=== PATIENT | male | born 1950 | race Caucasian/White ===

== ENCOUNTER → 2018-12-10 | Outpatient (CLI) | payer BC ==
--- NOTE | 2018-12-10 16:36 | RADRPT ---
PROCEDURE: XR Knees. CLINICAL INDICATION: Bilateral knee pain. TECHNIQUE: Total of eight views. Weightbearing frontal, oblique, and lateral views of the both kne es. Patellar views of both knees. COMPARISON: No prior study is available for comparison. FINDINGS: There is no fracture or dislocation. Vascular calcifications are present consistent with atherosclerosis. Articular surfaces are intact. There is no lytic or blastic lesion. There is no radiopaque foreign body. IMPRESSION: 1. Atherosclerosis. 2. Otherwise unremarkable images of both knees. RPTAT: QQ .Kerwin Biswas MD, MD Date Time Electronically viewed and signed by .Kerwin Biswas MD, MD on 12/10/2018 16:36 .R/
--- NOTE | 2018-12-10 21:11 | CONS ---
Assessment/Plan Assessment/Plan Hospital Course (Demo Recall) 68-year-old male presents with 3 days right knee pain to clinic. The patient denies any pain. 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 Without reviewing the imaging myself its difficult to determine the extent and size of the lesion. The lateral meniscus tear is chronic. At this time I like to make the patient nonweightbearing with crutches to protect his lateral femoral condyle. Like him to bring in the CD with imaging. I will review the images and call him with an updated plan. If the lesion is relatively small and low-grade likely will allow him to weight-bear. Versus even offering him steroid injection. Will call patient once MRI imaging is reviewed. Consultation Date/Type/Reason Admit Date/Time Date of Consultation: Dec 10, 2018 Reason for Consultation right knee pain Date/Time of Note DATE: 12/10/18 TIME: 20:55 Hx of Present Illness Is a 68-year-old male with a chief complaint of right knee pain. The pain began approximately 30 days ago. The patients pain is in the lateral aspect of the right knee. Pain is not radiating to the lower leg. The pain is rated as a 7/10. Patient denies complaints of numbness or tingling. The pain is exacerbated by weightbearing, climbing stairs and ambulation. When sitting he has minimal to no pain. He did have a right knee steroid injection 2 weeks ago by his PCP with no relief. Duration: 30 days Injury: No Walking tolerance: Severely limited Limp: yes Support: no Swelling: Yes Crepitation: No Instability: No Stairs: Painful Physical Therapy: No Injections: Yes NSAIDs: No Prior surgery: No Back pain: Yes Hip pain: No Risk of AVN : Yes Patient denies fever, chills, shortness of breath, chest pain, nausea/vomiting, constipation, diarrhea, numbness, and tingling. Past Medical History Hypertension Past Surgical History Past Surgical Hx: noncontributory Family History Significant Family History: no pertinent family hx Social History Alcohol Use: heavy (Daily) Smoking Status: Former smoker Drug Use: none Exam/Review of Systems Exam Exam General: Alert, oriented x3. No Acute Distress. Heart: Regular rate and rhythm. Lungs: No respiratory distress. No accessory muscle use. Musculoskeletal: Right Knee This is a well developed male who is alert, oriented times three and in no apparent distress. Skin is intact over the right knee as well as the lower extremity with no abrasions, lacerations, or ulcerations. Observation of the patient's gait reveals an antalgic gait with No thrust. Frontal plane alignment is slight valgus. There is pain on palpation of lateral joint line and lateral femoral condyle. The patient demonstrates grinding anteriorly with ROM. Range of motion: 0 extension to approximately 130 degrees of flexion. Negative Gerson's. Collateral ligament testing reveals no instability with varus or valgus stress at 0 and 30 degrees of flexion. Negative Dalila's and negative posterior drawer. Neurovascularly intact with 5/5 EHL/tibialis anterior/gastroc. Sensation intact to light touch in a sural, saphenous, deep peroneal, superficial peroneal, medial and lateral plantar nerve distribution. Palpable, symmetric dorsalis pedis and posterior tibial pulses in both lower extremities. Hip examination normal. Imaging Imaging MRI from outside facility report was reviewed: Demonstrates complete detachment of the anterior horn and posterior horn root of the lateral meniscus. There is multidirectional tears. There is full-thickness cartilage loss in the lateral and femoral condyle and lateral tibial plateau. There is edema in the lateral femoral condyle with subchondral microfractures or spontaneous osteonecrosis of the knee. Mucoid degeneration of the ACL. Chronic sprain of the MCL and low- grade sprain of the LCL. The patient received a standard set of films today that were personally reviewed. Imaging included a standing bilateral knee AP, PA flexion, merchant views and a dedicated lateral of the affected knee: There is slight valgus alignment of the knee. There is moderate loss of joint space lateral compartment(s). There is no osteophyte formation. There is no subchondral sclerosis. There are no subchondral cysts. There are changes in the lateral femoral condyle which may be early AVN vs collapse. Significant number of calcifications in the popliteal artery and bilateral knees. BRAIN CANO MD Dec 10, 2018 21:08
== END | disposition home or self-care (01) ==
LOC: HKI 12:58
PROVIDERS: ATTEND Orthopaedic Surgery Adult Reconstructive Orthopaedic Surgery
DX: M25.561 Pain in right knee (principal); S83.281A Other tear of lateral meniscus, current injury, right knee, initial encounter; X58.XXXA Exposure to other specified factors, initial encounter
CPT/HCPCS: 73564; G0463

== ENCOUNTER → 2019-02-25 | Outpatient (CLI) | payer BC ==
--- NOTE | 2019-02-25 19:34 | CONS ---
Consult Date/Type/Reason Admit Date/Time Initial Consult Date Date/Time of Note DATE: 02/25/19 TIME: 19:21 Subjective This is a 68-year-old male following up today for right knee pain. 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 In the interim he did drop off the imaging which I have now reviewed. After the disc was dropped off shortly after his last appointment he was called and instructed to not be full weightbearing and to have protected weightbearing with a gait aid. He was also recommended anti-inflammatory meloxicam. Patient states he perform protected weightbearing and use meloxicam for the last 2 months and he has had no change in his symptoms. He continues to have significant pain when walking and swelling of his right knee. The pain is all lateral. He has no medial or anterior pain. He is unable to work his full schedule at this time secondary to the pain. Objective Vitals Weight: 190 pound Height: 6 foot 1 inch Heart Rate: 83 Blood Pressure: 139/79 Exam General: Alert, oriented x3. No Acute Distress. Heart: Regular rate and rhythm. Lungs: No respiratory distress. No accessory muscle use. Musculoskeletal: Right Knee This is a well developed male who is alert, oriented times three and in no apparent distress. Skin is intact over the right knee as well as the lower extremity with no abrasions, lacerations, or ulcerations. Observation of the patient's gait reveals an antalgic gait with No thrust. Frontal plane alignment is slight valgus. There is pain on palpation of lateral joint line and lateral femoral condyle. The patient demonstrates grinding anteriorly with ROM. Range of motion: 0 extension to approximately 130 degrees of flexion. Negative Gerson's. Collateral ligament testing reveals no instability with varus or valgus stress at 0 and 30 degrees of flexion. Negative Dalila's and negative posterior drawer. Neurovascularly intact with 5/5 EHL/tibialis anterior/gastroc. Sensation intact to light touch in a sural, saphenous, deep peroneal, superficial peroneal, medial and lateral plantar nerve distribution. Palpable, symmetric dorsalis pedis and posterior tibial pulses in both lower extremities. Hip examination normal. Results/Medications Imaging MRI from outside facility report and imaging were personally reviewed: Demonstrates complete detachment of the anterior horn and posterior horn root of the lateral meniscus. There are multidirectional tears. There is full- thickness cartilage loss in the lateral and femoral condyle and lateral tibial plateau. There is edema in the lateral femoral condyle with subchondral microfractures or spontaneous osteonecrosis of the knee. Mucoid degeneration of the ACL. Chronic sprain of the MCL and low-grade sprain of the LCL. The patient received a standard set of films today that were personally reviewed. Imaging included a standing bilateral knee AP, PA flexion, merchant views and a dedicated lateral of the affected knee: There is slight valgus alignment of the knee. There is moderate loss of joint space lateral compartment(s) and a slight decrease in joint space compared to xrays 2 months ago. There is a small defect in the lateral femoral condyle better seen today than on previous films. No significant collapse. There is no osteophyte formation. There is no subchondral sclerosis. There are no subchondral cysts. There are changes in the lateral femoral condyle which may be early AVN vs collapse. Significant number of calcifications in the popliteal artery and bilateral knees. 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 At this time there is no significant changes in x-ray. There is slight progression in joint space narrowing on the lateral compartment, but this could be projectional. The patient failed anti-inflammatories and protected weightbearing to treat the spontaneous osteonecrosis of the knee. At this time I would like to treat him for his osteoarthritis with a steroid injection. If this fails I would likely get a new MRI to ensure that his lesion on the lateral femoral condyle is not progressing. If conservative treatment fails he will likely need a lateral unicompartmental knee arthroplasty. Aspiration was 20 mL of bloody synovial fluid. This could be secondary to his spontaneous osteonecrosis of the knee progressing or from other intra-articular inflammation causing bleeding. Plan: Right knee aspiration and steroid injection Low impact activities Ice Follow-up 3 months Assessment/Plan (Daily) Right knee aspiration and steroid injection procedure: Risks and benefits of aspiration and injection reviewed with patient. The risks include infection, failure, pain, swelling, nerve/tendon/ligament damage. The patient verbalized understanding and verbal consent was obtained prior to procedure. The right knee was prepped in a sterile fashion with alcohol and betadine the site of aspiration was confirmed. Lateral approach was used. The skin and capsule was anesthetized with 3mL 1% lidocaine careful not to inject intra- articularly. The right knee was aspirated. 20 mL of bloody synovial fluid was aspirated. Keeping the aspiration needle intra-articular the syringe was unhubbed and the syringe containing the steroid mixture was hubbed. The right knee was injected with 2mL 1% lidocaine, 2mL 0.25% bupivacaine, 40mg Depo- Medrol. Injection flowed freely. Good hemostasis was achieved and no complications noted. The patient tolerated the procedure well. Limit activity and ice for 24-48 hours BRAIN CANO MD February 25, 2019 19:34
--- NOTE | 2019-02-26 11:03 | RADRPT ---
PROCEDURE: Bilateral knee series CLINICAL INDICATION: Pain TECHNIQUE: AP weightbearing, PA, weightbearing, lateral weightbearing and sunrise views were obtain ed of the right and left knees. COMPARISON: Bilateral knee study 12/10/2018 FINDINGS: Moderate degenerate joint disease of the right knee worse involving the lateral compartment. Minimal degenerate joint disease of the left knee. No evidence of acute fractures or dislocations. No focal b capri blastic or lytic lesions. No evidence of right or left knee joint effusions. Atherosclerotic vasc ular disease. Soft tissues are otherwise unremarkable. IMPRESSION: 1. Moderate right and minimal left degenerate joint disease. 2. No acute fractures dislocation or joint effusions bilaterally. RPTAT:AAJJ Physician Mariama Date Time Electronically viewed and signed by Luis Waller Physician on 02/26/2019 11:03 BM/
== END | disposition home or self-care (01) ==
LOC: HKI 14:12
PROVIDERS: ATTEND Orthopaedic Surgery Adult Reconstructive Orthopaedic Surgery
DX: M17.11 Unilateral primary osteoarthritis, right knee (principal); M23.241 Derangement of anterior horn of lateral meniscus due to old tear or injury, right knee; M23.251 Derangement of posterior horn of lateral meniscus due to old tear or injury, right knee
CPT/HCPCS: 20610; 73564; G0463